=== PATIENT | female | born 1980 | race Two or more races ===

== ENCOUNTER 2020-11-28 07:08 | Emergency (ER) | payer OTHER ==
[2020-11-28 07:39] VITALS: BP 107/55; PULSE 79; TEMP 98.5; BMI 30.7
[2020-11-28 07:58] LABS: URINE APPEARANCE CLOUDY; URINE BILIRUBIN NEGATIVE (NEGATIVE); URINE COLOR YELLOW; URINE GLUCOSE (UA) NEGATIVE (NEGATIVE); URINE KETONE TRACE (NEGATIVE); URINE LEUK ESTERASE NEGATIVE (NEGATIVE); URINE NITRITE NEGATIVE (NEGATIVE); URINE PROTEIN TRACE (NEGATIVE)
[2020-11-28 08:00] LABS: HCG,QUALITATIVE URINE Positive
== END 2020-11-28 10:08 | disposition home or self-care (01) ==
LOC: JER 07:08
DX: Z34.90 Encounter for supervision of normal pregnancy, unspecified, unspecified trimester (principal); R10.2 Pelvic and perineal pain
CPT/HCPCS: 36415; 76817-TC; 81003; 84702; 84703; 87086; 87491; 87591; 99284-25

== ENCOUNTER 2020-11-30 11:18 | Emergency (ER) | payer OTHER ==
[2020-11-30 11:31] VITALS: BP 112/52; PULSE 70; TEMP 97; BMI 29.4
[2020-11-30] MEDS ORDERED: ACETAMINOPHEN 325 MG TABLET (FP) PO ONE (14:03)
[2020-11-30] MEDS ORDERED: ACETAMINOPHEN 325 MG TABLET (FP) ONE (14:03)
== END 2020-11-30 14:07 | disposition home or self-care (01) ==
LOC: JER 11:18
DX: O26.891 Other specified pregnancy related conditions, first trimester (principal)
CPT/HCPCS: 36415; 76817-TC; 84702; 86850; 86900; 86901; 99284-25

== ENCOUNTER 2021-08-02 12:10 | Inpatient (IN) | payer OTHER ==
[2021-08-02] MEDS: ELECTROLYTE-148 SOLN 1,000 ML IV SCH ×2 (13:00→20:15)
[2021-08-02 13:32] VITALS: BMI 36.6
[2021-08-02 14:13] LABS: BASO % 0.1 % (0-2.0); EOS % 2.1 % (0-4.5); HEMATOCRIT 35.5 % (32.4-45.2); HEMOGLOBIN 11.9 GM/dL (10.7-15.3); LYMPH % 20.9 % (8-40); MCHC 33.5 g/dl (32.0-36.0); MEAN CELL VOLUME 86.6 fl (80-96); MEAN PLT VOLUME 10.7 fl (7.5-11.1); MONO % 8.4 % (3.8-10.2); NEUT % 68.5 % (42.8-82.8); PLATELET COUNT 195 10^3/uL (134-434); RBC 4.09 M/mm3 (3.60-5.2); RDW 15.7 % (11.6-15.6); WHITE BLOOD COUNT 6.9 K/mm3 (4.0-10.0)
[2021-08-02 14:20] LABS: INR 0.97 (0.83-1.09); PROTHROMBIN TIME (PATIENT) 10.9 SEC (9.7-13.0)
[2021-08-02 14:22] LABS: ACTIVATED PTT 31.1 SECONDS (25.2-36.5)
[2021-08-02 14:24] LABS: BLOOD UREA NITROGEN 10.9 mg/dL (7-18); CALCIUM 8.4 mg/dL (8.5-10.1)
[2021-08-02] MEDS ORDERED: DINOPROSTONE 10 MG VAGINAL SUPPOSITORY VG ONE (14:25)
[2021-08-02 14:28] LABS: CREATININE 0.5 mg/dL (0.55-1.3)
[2021-08-02] MEDS ORDERED: BUTORPHANOL TARTRATE 1 MG/ML VIAL IVPUSH ONE (14:46)
[2021-08-02] MEDS ORDERED: PROMETHAZINE HCL 25 MG/1 ML VIAL IVPUSH ONE (14:46)
[2021-08-03] MEDS ORDERED: OXYTOCIN 30 UNITS in 0.9% NS 30 UNIT/500 ML INFUS.BAG IVPB SCH (00:15)
[2021-08-03 00:24] LABS: URIC ACID 3.7 mg/dL (2.6-7.2)
[2021-08-03 01:20] LABS: EPI CELLS 15 /uL (0-25.1); HYALINE CASTS 1 /uL (0-3.1); URINE APPEARANCE CLEAR; URINE BACTERIA 74 /uL (0-1359); URINE BILIRUBIN NEGATIVE (NEGATIVE); URINE COLOR YELLOW; URINE GLUCOSE (UA) NEGATIVE (NEGATIVE); URINE KETONE NEGATIVE (NEGATIVE); URINE LEUK ESTERASE NEGATIVE (NEGATIVE); URINE NITRITE NEGATIVE (NEGATIVE); URINE PROTEIN 2+ (NEGATIVE); URINE RBC 5 /uL (0-23.9); URINE WBC 5 /uL (0-25.8)
[2021-08-03] MEDS ORDERED: BUTORPHANOL TARTRATE 2 MG/ML VIAL ONE (01:25)
[2021-08-03] MEDS ORDERED: PROMETHAZINE HCL 25 MG/1 ML VIAL ONE (01:25)
[2021-08-03] MEDS ORDERED: MAGNESIUM 4GM/H20 - 4 GM/100 ML IVPB IVPB SCH (03:30)
[2021-08-03] MEDS ORDERED: LABETALOL HCL 5 MG/1 ML (100MG/20 ML VIAL) IVPUSH ONE (03:30)
[2021-08-03] MEDS ORDERED: LABETALOL HCL 5 MG/1 ML (100MG/20 ML VIAL) ONE (03:34)
[2021-08-03] MEDS ORDERED: MAGNESIUM SULFATE 20GM/500ML - 20 GM/500 ML INFUS.BAG IVPB SCH (04:00)
[2021-08-03] MEDS ORDERED: DEXTROSE 5%-LACTATED RINGERS 1,000 ML IV SCH (04:00)
[2021-08-03] MEDS ORDERED: MAGNESIUM SULFATE 20GM/500ML - 20 GM/500 ML INFUS.BAG ONE (04:16)
[2021-08-03 09:10] LABS: HEMATOCRIT 36.4 % (32.4-45.2); HEMOGLOBIN 12.5 GM/dL (10.7-15.3); MCH 29.8 pg (25.7-33.7); MCHC 34.4 g/dl (32.0-36.0); MEAN CELL VOLUME 86.7 fl (80-96); MEAN PLT VOLUME 10.8 fl (7.5-11.1); PLATELET COUNT 212 10^3/uL (134-434); RDW 15.9 % (11.6-15.6); WHITE BLOOD COUNT 10.3 K/mm3 (4.0-10.0)
[2021-08-03] MEDS ORDERED: OXYTOCIN 30 UNITS in 0.9% NS 30 UNIT/500 ML INFUS.BAG IVPB ONE (09:38)
[2021-08-03] MEDS: DEXTROSE 5%-LACTATED RINGERS 1,000 ML IV SCH (09:45)
[2021-08-03] MEDS: ELECTROLYTE-148 SOLN 1,000 ML IV SCH (09:45)
[2021-08-03] MEDS ORDERED: morphine SULFATE/PF 1 MG/2 ML (2cc Syringe - QUVA) EP ONE (11:49)
[2021-08-03] MEDS ORDERED: ONDANSETRON 4 MG/2 ML VIAL IVPUSH PRN (11:49)
[2021-08-03] MEDS ORDERED: ceFAZolin SODIUM 1 GM VIAL ONE (12:21)
[2021-08-03] MEDS ORDERED: morphine SULFATE/PF 1 MG/2 ML (2cc Syringe - QUVA) ONE (12:21)
[2021-08-03] MEDS ORDERED: PHENYLEPHRINE HCL 10 MG/1 ML SINGLE DOSE VIAL ONE (12:39)
[2021-08-03] MEDS ORDERED: OXYTOCIN 10 UNITS/ML VIAL ONE ×2 (12:52→13:23)
[2021-08-03] MEDS: OXYTOCIN 20 UNITS in 0.9% NS 20 UNIT/1,000 ML INFUS.BAG IV SCH ×2 (13:00→23:28)
[2021-08-03] MEDS ORDERED: MIDAZOLAM HCL 2 MG/2 ML SINGLE DOSE VIAL ONE (13:16)
[2021-08-03 13:53] LABS: CORD BASE EXCESS -4.6 mmol/L (0-2); CORD HCO3 24.4 mmHg (20-29); CORD pH 7.227 (7.14-7.44)
[2021-08-03 13:56] LABS: CORD BASE EXCESS -8.2 mmol/L (0-2); CORD HCO3 22.9 mmHg (20-29); CORD PCO2 71.5 mmHg (30-78); CORD pH 7.124 (7.14-7.44)
[2021-08-03] MEDS ORDERED: METHYLERGONOVINE MALEATE 0.2 MG/1 ML AMP IM PRN (14:01)
[2021-08-03] MEDS ORDERED: IBUPROFEN 800 MG/8 ML IJ IVPB PRN (14:01)
[2021-08-03] MEDS ORDERED: OXYTOCIN 20 UNITS in 0.9% NS 20 UNIT/1,000 ML INFUS.BAG IV ONE (15:39)
[2021-08-03] MEDS ORDERED: LABETALOL HCL 200 MG TABLET (FP) PO PRN (23:39)
[2021-08-04] MEDS ORDERED: oxyCODONE HCL 5 MG TABLET PO PRN (02:01)
[2021-08-04 08:16] LABS: BASO % 0.3 % (0-2.0); HEMATOCRIT 33.3 % (32.4-45.2); HEMOGLOBIN 11.2 GM/dL (10.7-15.3); LYMPH % 13.5 % (8-40); MCH 29.2 pg (25.7-33.7); MCHC 33.7 g/dl (32.0-36.0); MEAN CELL VOLUME 86.6 fl (80-96); MONO % 6.4 % (3.8-10.2); NEUT % 78.8 % (42.8-82.8); PLATELET COUNT 163 10^3/uL (134-434); RBC 3.84 M/mm3 (3.60-5.2); RDW 15.6 % (11.6-15.6); WHITE BLOOD COUNT 9.8 K/mm3 (4.0-10.0)
[2021-08-04] MEDS: DEXTROSE 5%-LACTATED RINGERS 1,000 ML IV SCH (10:20)
[2021-08-04] MEDS: ELECTROLYTE-148 SOLN 1,000 ML IV SCH (10:20)
[2021-08-04] MEDS: SIMETHICONE 80 MG TAB.CHEW (FP) PO PRN ×2 (10:25→14:36)
[2021-08-04] MEDS: IBUPROFEN 600 MG TABLET (FP) PO PRN ×2 (10:25→14:36)
[2021-08-04] MEDS ORDERED: BISACODYL 10 MG SUPP.RECT RC PRN (14:01)
[2021-08-04] MEDS: OXYTOCIN 20 UNITS in 0.9% NS 20 UNIT/1,000 ML INFUS.BAG IV SCH (14:26)
[2021-08-05] MEDS: SIMETHICONE 80 MG TAB.CHEW (FP) PO PRN ×2 (03:03→19:57)
[2021-08-05] MEDS: oxyCODONE HCL 5 MG TABLET PO PRN ×3 (03:03→19:57)
[2021-08-05] MEDS: IBUPROFEN 600 MG TABLET (FP) PO PRN (10:40)
[2021-08-05] MEDS: ACETAMINOPHEN 325 MG TABLET (FP) PO PRN (19:58)
[2021-08-06] MEDS: ACETAMINOPHEN 325 MG TABLET (FP) PO PRN ×2 (06:33→18:02)
[2021-08-06] MEDS: SIMETHICONE 80 MG TAB.CHEW (FP) PO PRN (06:33)
[2021-08-06] MEDS: IBUPROFEN 600 MG TABLET (FP) PO PRN ×2 (06:33→18:01)
[2021-08-06 07:15] LABS: BASO % 0.3 % (0-2.0); EOS % 2.1 % (0-4.5); HEMOGLOBIN 10.5 GM/dL (10.7-15.3); LYMPH % 21.2 % (8-40); MCH 29.7 pg (25.7-33.7); MEAN CELL VOLUME 87.5 fl (80-96); MEAN PLT VOLUME 10.1 fl (7.5-11.1); MONO % 5.9 % (3.8-10.2); NEUT % 70.5 % (42.8-82.8); PLATELET COUNT 184 10^3/uL (134-434); RBC 3.55 M/mm3 (3.60-5.2); RDW 15.5 % (11.6-15.6); WHITE BLOOD COUNT 8.4 K/mm3 (4.0-10.0)
[2021-08-06 15:48] LABS: ALBUMIN 2.1 g/dl (3.4-5.0); BLOOD UREA NITROGEN 11.4 mg/dL (7-18); CALCIUM 8.5 mg/dL (8.5-10.1)
[2021-08-06 15:51] LABS: CREATININE 0.6 mg/dL (0.55-1.3)
[2021-08-06 15:52] LABS: BASO % 0.4 % (0-2.0); EOS % 2.4 % (0-4.5); HEMATOCRIT 31.7 % (32.4-45.2); HEMOGLOBIN 10.5 GM/dL (10.7-15.3); LYMPH % 16.3 % (8-40); MCH 28.8 pg (25.7-33.7); MCHC 33.2 g/dl (32.0-36.0); MEAN CELL VOLUME 86.8 fl (80-96); MEAN PLT VOLUME 9.6 fl (7.5-11.1); MONO % 6.5 % (3.8-10.2); NEUT % 74.4 % (42.8-82.8); PLATELET COUNT 190 10^3/uL (134-434); RBC 3.65 M/mm3 (3.60-5.2); RDW 15.4 % (11.6-15.6); WHITE BLOOD COUNT 8.5 K/mm3 (4.0-10.0)
[2021-08-06 15:53] LABS: BILIRUBIN,TOTAL 0.2 mg/dL (0.2-1); TOT PROT 5.5 g/dl (6.4-8.2)
[2021-08-07] MEDS: IBUPROFEN 600 MG TABLET (FP) PO PRN ×2 (05:29→09:27)
[2021-08-07] MEDS: SIMETHICONE 80 MG TAB.CHEW (FP) PO PRN ×2 (05:30→09:28)
[2021-08-07] MEDS: ACETAMINOPHEN 325 MG TABLET (FP) PO PRN ×2 (05:30→09:28)
[2021-08-07] MEDS ORDERED: PRENATAL VITAMINS W/ FOLIC ACID TABLET (FP) PO SCH (10:00)
[2021-08-07 10:32] VITALS: BP 128/81; PULSE 70; TEMP 98.3
== END 2021-08-07 13:50 | disposition home or self-care (01) | DRG 788 ==
LOC: JLDR 12:10 → J3W 08-03 15:49
PROVIDERS: ADMIT Obstetrics & Gynecology; ATTEND Obstetrics & Gynecology
PROC: 10D00Z1 Extraction of Products of Conception, Low, Open Approach (ICD-10-PCS; principal; 2021-08-03)
PROC: 3E0P7VZ Introduction of Hormone into Female Reproductive, Via Natural or Artificial Opening (ICD-10-PCS; 2021-08-03)
DX: O14.94 Unspecified pre-eclampsia, complicating childbirth (principal); O24.425 Gestational diabetes mellitus in childbirth, controlled by oral hypoglycemic drugs; O62.0 Primary inadequate contractions; O99.214 Obesity complicating childbirth; Z3A.39 39 weeks gestation of pregnancy; Z37.0 Single live birth
CPT/HCPCS: 36415; 36600; 80048; 80053; 81003; 82803; 82962; 82977; 83010; 83735; 84450; 84460; 84550; 85025; 85027; 85032; 85045; 85610; 85730; 86780; 86850; 86900; 86901; 88307-TC; C9803; U0003; U0005